=== PATIENT | male | born 1995 | race African-American/Black ===

== ENCOUNTER 2017-01-07 20:08 | Emergency (ER) | payer SELFPAY ==
--- NOTE | 2017-01-07 21:07 | ER Document Report ---
ED General - General Chief Complaint: Chest Pain Stated Complaint: CHEST PAIN Time Seen by Provider: 01/07/17 20:57 Notes: Patient is a 21-year-old male comes emergency department for chief complaint of chest pain, he states he has had this for several days, he feels it worse in the morning when he wakes up, it is just below his sternum, he states he has also had a worse cough for several days with yellow sputum production. He denies fever, difficulty breathing, abdominal pain. he denies any history of IV drug abuse or recreational drugs. He smokes cigarettes. Past medical history of asthma. TRAVEL OUTSIDE OF THE [place] IN LAST 30 DAYS: No - Related Data Allergies/Adverse Reactions: tramadol Allergy (Verified 02/07/16 07:34) hydrocodone bitartrate [From Vicodin] Adverse Reaction (Verified 02/07/16 07:34) Past Medical History - General Information source: Patient - Social History Smoking Status: Current Every Day Smoker Chew tobacco use (# tins/day): No Smoking Education Provided: Yes - <3 min Frequency of alcohol use: None Drug Abuse: None Lives with: Alone Family History: DM, Hypertension, Malignancy Patient has suicidal ideation: No Patient has homicidal ideation: No Pulmonary Medical History: Reports: Hx Asthma Renal/ Medical History: Denies: Hx Peritoneal Dialysis Musculoskeltal Medical History: Reports Hx Arthritis, Reports Hx Musculoskeletal Trauma Psychiatric Medical History: Reports: Hx Attention Deficit Hyperactivity Disorder - Immunizations Immunizations up to date: Yes Hx Diphtheria, Pertussis, Tetanus Vaccination: Yes Review of Systems - Review of Systems Constitutional: No symptoms reported EENT: No symptoms reported Cardiovascular: No symptoms reported Respiratory: See HPI Gastrointestinal: See HPI Genitourinary: No symptoms reported Male Genitourinary: No symptoms reported Musculoskeletal: See HPI Skin: No symptoms reported Hematologic/Lymphatic: No symptoms reported Neurological/Psychological: No symptoms reported Physical Exam - Vital signs Vitals: Temp Pulse Resp BP Pulse Ox 99.1 F 66 16 114/59 L 100 01/07/17 20:39 01/07/17 20:39 01/07/17 20:39 01/07/17 20:39 01/07/17 20:39 Interpretation: Normal - General General appearance: Appears well, Alert In distress: None - HEENT Head: Normocephalic, Atraumatic Eyes: Normal Pupils: PERRL - Respiratory Respiratory status: No respiratory distress. No: Labored, Retractions, Tachypnea Chest status: Tender - Very mild tenderness in the mid to lower sternum area and over the right lower anterior ribs Breath sounds: Normal. No: Decreased air movement, Wheezing Chest palpation: Normal - Cardiovascular Rhythm: Regular. No: Tachycardia Heart sounds: Normal auscultation, S1 appreciated, S2 appreciated Murmur: No - Abdominal Inspection: Normal Distension: No distension Bowel sounds: Normal Tenderness: Tender - Minimal generalized upper abdominal tenderness around the epigastrium Organomegaly: No organomegaly - Back Back: Normal, Nontender. No: Tender, CVA tenderness - Extremities General upper extremity: Normal inspection, Nontender, Normal ROM, Normal strength General lower extremity: Normal inspection, Nontender, Normal ROM, Normal strength - Neurological Neuro grossly intact: Yes Cognition: Normal Orientation: AAOx4 [place] Coma Scale Eye Opening: Spontaneous [place] Coma Scale Verbal: Oriented [place] Coma Scale Motor: Obeys Commands [place] Coma Scale Total: 15 Speech: Normal Motor strength normal: LUE, RUE, LLE, RLE Sensory: Normal - Psychological Associated symptoms: Normal affect, Normal mood - Skin Skin Temperature: Warm Skin Moisture: Dry Skin Color: Normal Course - Re-evaluation Re-evalutation: EKG sinus rhythm, no T-wave inversions or ST segment changes in consecutive leads, no concerning abnormalities including no [place] interval depression. Chest x -ray unremarkable. Patient very well-appearing on exam, has mild mainly right- sided chest wall tenderness, he also has a little bit of tenderness with palpation of the epigastric area which is extremely mild. No evidence of acute abdomen, no vomiting, unremarkable vital signs. Patient also with a occasional productive cough over the past few days. No fever. Discussed smoking cessation , will treat with prednisone, given Pepcid because of potential GI component as well, discussed follow-up and return precautions, patient states understanding and agreement. - Vital Signs Vital signs: Temp Pulse Resp BP Pulse Ox 98 F 60 18 120/69 96 01/07/17 22:48 01/07/17 22:48 01/07/17 22:48 01/07/17 22:48 01/07/17 22:48 Discharge - Discharge Clinical Impression: Chest wall pain, Cough Condition: Stable Disposition: HOME, SELF-CARE Additional Instructions: Your chest x-ray is normal with no concerning abnormalities including no evidence of pneumonia. Your EKG does not show any concerning abnormalities. Your examination indicates probably a chest wall cause of your symptoms although I recommend taking the Pepcid as prescribed for gastrointestinal source as well. Follow-up with primary care. Stop smoking. Return to emergency department for any concerning or worsening symptoms including difficulty breathing, fever, vomiting, or any other concerning symptoms. Prescriptions: Famotidine [Pepcid 20 mg Tablet] 20 mg PO BID #14 tablet Prednisone [Deltasone 10 mg Tablet] 10 mg PO ASDIR PRN #21 tablet PRN Reason: Forms: Smoking Cessation Education
[2017-01-07] MEDS ORDERED: FAMOTIDINE 20 MG TABLET PO ONE (21:13)
[2017-01-07] MEDS ORDERED: MAG HYDROX/AL HYDROX/SIMETH SUSP 30 ML UDCUP PO ONE (21:14)
--- NOTE | 2017-01-07 21:36 | RADIOLOGY REPORT (SQ) ---
EXAM DESCRIPTION: CHEST PA/LAT COMPLETED DATE/TIME: 01/07/2017 9:26 pm REASON FOR STUDY: chest pain COMPARISON: 01/05/2016 EXAM PARAMETERS: NUMBER OF VIEWS: two views TECHNIQUE: Digital Frontal and Lateral radiographic views of the chest acquired. RADIATION DOSE: NA LIMITATIONS: none FINDINGS: LUNGS AND PLEURA: No opacities, masses or pneumothorax. No pleural effusion. MEDIASTINUM AND HILAR STRUCTURES: No masses or contour abnormalities. HEART AND VASCULAR STRUCTURES: Heart normal size. No evidence for failure. BONES: No acute findings. HARDWARE: None in the chest. OTHER: No other significant finding. IMPRESSION: NO SIGNIFICANT RADIOGRAPHIC FINDING IN THE CHEST. TECHNICAL DOCUMENTATION: JOB ID: [id number] [employer]- All Rights Reserved
[2017-01-07] MEDS ORDERED: PREDNISONE 20 MG TABLET PO ONE (22:05)
[2017-01-07 22:52] VITALS: BP 120/69
--- NOTE | 2017-01-08 10:32 | EKG REPORT ---
SEVERITY:- ABNORMAL ECG - SINUS RHYTHM INCOMPLETE RIGHT BUNDLE BRANCH BLOCK : Confirmed by: Eva Nguyễn MD 08-Jan-2017 10:31:38
== END 2017-01-07 22:52 | disposition home or self-care (01) ==
LOC: ER 20:08
DX: R07.89 Other chest pain (principal); R05 Cough; R10.816 Epigastric abdominal tenderness; J45.909 Unspecified asthma, uncomplicated; F17.210 Nicotine dependence, cigarettes, uncomplicated; Z71.6 Tobacco abuse counseling; Z88.5 Allergy status to narcotic agent
CPT/HCPCS: 93005; 99285; 71020; 93010; J7512

== ENCOUNTER 2017-05-09 15:17 | Emergency (ER) | payer SELFPAY ==
[2017-05-09] MEDS ORDERED: ACETAMINOPHEN 325 MG TABLET PO ONE (17:38)
[2017-05-09] MEDS ORDERED: GUAIFENESIN/D-METHORPHAN (200-20 MG) SYRUP 10 ML PO ONE (17:38)
--- NOTE | 2017-05-09 17:38 | ER Document Report ---
ED Medical Screen (RME) - General Chief Complaint: Breathing Difficulty Stated Complaint: CONGESTION, DIFFICULTY BREATHING Time Seen by Provider: 05/09/17 17:37 Mode of Arrival: Ambulatory Information source: Patient Notes: Pt has had 3.5 weeks of cough, congestion, sob and today had some pink sputum with his cough. Admits to fever/chills. hasn't taken temp. not asthmatic. TRAVEL OUTSIDE OF THE [place] IN LAST 30 DAYS: No - Related Data Allergies/Adverse Reactions: tramadol Allergy (Verified 05/09/17 15:18) hydrocodone bitartrate [From Vicodin] Adverse Reaction (Verified 05/09/17 15:18) Past Medical History - General Information source: Patient Pulmonary Medical History: Reports: Hx Asthma Renal/ Medical History: Denies: Hx Peritoneal Dialysis Musculoskeltal Medical History: Reports Hx Arthritis, Reports Hx Musculoskeletal Trauma Psychiatric Medical History: Reports: Hx Attention Deficit Hyperactivity Disorder - Immunizations Immunizations up to date: Yes Hx Diphtheria, Pertussis, Tetanus Vaccination: Yes Review of Systems - Review of Systems Constitutional: See HPI EENT: See HPI Respiratory: See HPI Physical Exam - Vital signs Vitals: Temp Pulse Resp BP Pulse Ox 100.3 F 102 H 16 119/70 100 05/09/17 15:23 05/09/17 15:23 05/09/17 15:23 05/09/17 15:23 05/09/17 15:23 - Notes Notes: general: smiling, in NAD lungs: ctab Course - Vital Signs Vital signs: Temp Pulse Resp BP Pulse Ox 100.3 F 102 H 16 119/70 100 05/09/17 15:23 05/09/17 15:23 05/09/17 15:23 05/09/17 15:23 05/09/17 15:23
--- NOTE | 2017-05-09 18:11 | RADIOLOGY REPORT (SQ) ---
EXAM DESCRIPTION: CHEST PA/LAT COMPLETED DATE/TIME: 05/09/2017 6:04 pm REASON FOR STUDY: cough, sob COMPARISON: 01/07/2017 EXAM PARAMETERS: NUMBER OF VIEWS: two views TECHNIQUE: Digital Frontal and Lateral radiographic views of the chest acquired. RADIATION DOSE: NA LIMITATIONS: none FINDINGS: LUNGS AND PLEURA: No opacities, masses or pneumothorax. No pleural effusion. MEDIASTINUM AND HILAR STRUCTURES: No masses or contour abnormalities. HEART AND VASCULAR STRUCTURES: Heart normal size. No evidence for failure. BONES: No acute findings. HARDWARE: None in the chest. OTHER: No other significant finding. IMPRESSION: NO SIGNIFICANT RADIOGRAPHIC FINDING IN THE CHEST. TECHNICAL DOCUMENTATION: JOB ID: [id number] [employer]- All Rights Reserved
--- NOTE | 2017-05-09 18:12 | ER Document Report ---
ED General - General Chief Complaint: Breathing Difficulty Stated Complaint: CONGESTION, DIFFICULTY BREATHING Time Seen by Provider: 05/09/17 17:37 Mode of Arrival: Ambulatory Information source: Patient Notes: Patient is a 21 year old male who presents with 3 week history of cough, chest congestion which he states has worsened over the past week. He reports today he noticed pink tinge to his otherwise clear sputum and was concerned it was blood. He has been using a friends inhaler which does seem to provide relief. He was told he had asthma as a kid but he has never been on medication for it or required hospitalization. Endorses associated chills but denies headache, fever, chest pain, difficulty breathing, n/v/d. Did not get flu shot this year. He is a smoker. He had low grade temp in triage, given tylenol and anti-tussive. TRAVEL OUTSIDE OF THE [place] IN LAST 30 DAYS: No - Related Data Allergies/Adverse Reactions: tramadol Allergy (Verified 05/09/17 15:18) hydrocodone bitartrate [From Vicodin] Adverse Reaction (Verified 05/09/17 15:18) Past Medical History - General Information source: Patient - Social History Smoking Status: Current Every Day Smoker Family History: DM, Hypertension, Malignancy Pulmonary Medical History: Reports: Hx Asthma Renal/ Medical History: Denies: Hx Peritoneal Dialysis Musculoskeltal Medical History: Reports Hx Arthritis, Reports Hx Musculoskeletal Trauma Psychiatric Medical History: Reports: Hx Attention Deficit Hyperactivity Disorder - Immunizations Immunizations up to date: Yes Hx Diphtheria, Pertussis, Tetanus Vaccination: Yes Review of Systems - Review of Systems Constitutional: See HPI EENT: See HPI Cardiovascular: No symptoms reported Respiratory: See HPI Gastrointestinal: No symptoms reported Genitourinary: No symptoms reported Male Genitourinary: No symptoms reported Musculoskeletal: No symptoms reported Skin: No symptoms reported Hematologic/Lymphatic: No symptoms reported Neurological/Psychological: No symptoms reported Physical Exam - Vital signs Vitals: Temp Pulse Resp BP Pulse Ox 100.3 F 102 H 16 119/70 100 05/09/17 15:23 05/09/17 15:23 05/09/17 15:23 05/09/17 15:23 05/09/17 15:23 - Notes Notes: PHYSICAL EXAM: CONSTITUTIONAL: Alert and oriented, well-appearing and in no acute distress. Ambulatory and eating without difficulty, speaking full sentences without difficulty. Low-grade temp in triage, given Tylenol. HENT: Normocephalic, atraumatic. Ear canals without erythema or foreign body, TMs pearly godoy with good bony landmarks. Nares clear without erythema, septal hematoma or deviation, airway patent. Oropharynx clear without erythema, tonsilar exudate or malocclusion. Trachea midline. Uvula midline. Moist mucous membranes. EYES: Pupils equal round and reactive to light, EOM intact. Sclera anicteric, conjunctiva are normal. No entrapment. NECK: supple without lymphadenopathy. No midline tenderness or paraspinous muscle spasms. No step-offs or deformities. ROM intact. HEART: Regular rate and rhythm without murmurs. LUNGS: CTAB and equal. No wheezes, rales or rhonchi. EXTREMITIES: no bony tenderness, erythema, edema, ecchymosis or deformity. Normal range of motion, no pitting edema. No cyanosis. Cap Refill <3 seconds. NEURO: Cranial nerves grossly intact. Normal sensory/motor exams. PSYCH: Normal mood, normal affect. SKIN: Warm and dry. Normal turgor. No rashes or lesions noted. Course - Re-evaluation Re-evalutation: 05/09/17 18:11 Patient seen and examined. Low grade temp in triage, given tylenol and anti- tussive. Otherwise VSS, no respiratory distress, speaking in full sentences without difficulty, ambulatory in ED without difficulty. Lungs CTAB. Obtained CXR which was negative for acute infiltrate/opacity. Discussed results with patient, will treat for bronchitis. Smoking cessation discussed. Low suspicion for pneumonia, PE, ACS or other emergent medical condition. Patient in agreement with plan. At this time, will discharge with return precautions and follow-up recommendations. Verbal discharge instructions given at the bedside and opportunity for questions given. Medication warnings reviewed. Patient is in agreement with this plan and has verbalized understanding of return precautions and the need for primary care follow-up in the next 24-72 hours. - Vital Signs Vital signs: Temp Pulse Resp BP Pulse Ox 100.3 F 102 H 16 119/70 100 05/09/17 15:23 05/09/17 15:23 05/09/17 15:23 05/09/17 15:23 05/09/17 15:23 - Diagnostic Test Radiology reviewed: Image reviewed, Reports reviewed Discharge - Discharge Clinical Impression: Bronchitis, Smoker, Fever and chills Condition: Stable Disposition: HOME, SELF-CARE Additional Instructions: Your chest xray today was negative for pneumonia or other findings. BRONCHITIS: You have acute bronchitis. This disease is an infection or inflammation of the air passageways in your lungs. Symptoms usually include cough, low grade fever, shortness of breath, and wheezing. The cough usually persists for a couple of weeks. Most cases of bronchitis get better without antibiotics. We prescribe antibiotics when we believe bacteria are damaging your airways, or if there's high risk the bronchitis will worsen into pneumonia. Increase your fluid intake. A cool mist humidifier may make your lungs more comfortable. An expectorant (cough medicine that loosens phlegm) can help. If you smoke, STOP!!! Recovery from bronchitis can be somewhat slow, but you should see improvement within a day or two. Repeated episodes of bronchitis may result in lung damage -- for example, chronic bronchitis, recurrent pneumonias, or emphysema. Call the doctor if you develop increasing fever, shortness of breath, chest pain, bloody sputum, or otherwise worsen. If you have not improved at all after several days, contact the physician. BRONCHITIS WITH BRONCHOSPASM (WHEEZING): You have bronchitis with bronchospasm (wheezing). Sometimes people develop wheezing with a chest cold. This occurs either because of an underlying tendency toward asthma or because the virus itself irritates the bronchial tubes. This irritation causes cough, shortness of breath, and wheezing. Emergency treatment of bronchospasm may include adrenaline shots or bronchodilator aerosol. You may feel lightheaded and have a rapid pulse for an hour or two. Rest and get plenty of fluids. At home, we'll treat you with a bronchodilator inhaler. Corticosteroids may be required for some patients. Until you recover, avoid chemical fumes, dusts, pollens, and exercising in very cold or dry air. If you smoke, stop now! Most cases of bronchitis get better without antibiotics. We prescribe antibiotics when we believe bacteria are damaging your airways, or if there's high risk the bronchitis will worsen into pneumonia. Increase your fluid intake. A cool mist humidifier may make your lungs more comfortable. An expectorant (cough medicine that loosens phlegm) can help. Repeated episodes of bronchitis and bronchospasm may result in lung damage -- for example, chronic bronchitis, recurrent pneumonias, or emphysema. If you develop a fever, increased wheezing, chest pain, or severe shortness of breath, you should contact the doctor immediately. DECONGESTANT MEDICATION: A decongestant medicine has been prescribed. Often this medicine is combined in the same tablet with an antihistamine or expectorant. This type of medicine is helpful in treating a bad cold or sinus condition, as well as in treatment of the nasal congestion of hay fever. It is not of much benefit for lung infections. Decongestant medicines are related to stimulants. They can cause an increase in blood pressure and heart rate. Persons with heart disease and high blood pressure should not take decongestants without discussing this with the physician. If you develop palpitations, chest pain, headache, or tremors, stop the medicine and consult your physician. COUGH-SUPPRESSANT & EXPECTORANT MEDICATION: You are to use a cough medication as needed for relief of symptoms. This medicine is a combination of an expectorant (to make the mucous thinner and more easily "coughed up") and a cough suppressant (to reduce the frequency of coughing). The cough-suppressant medicine is related to narcotics. You may experience mild nausea and sleepiness. Some patients who are very sensitive to narcotics may have stomach pain from this medicine. Taking the medicine with food reduces these side effects. Do not drive or work with machinery until you know how this medicine affects you. The expectorant should have no side effects. Iodine-containing expectorants (such as organidin) should not be taken by persons with active thyroid disease unless approved by your doctor. Call the doctor if you develop shortness of breath, hives, rash, itching, lightheadedness, or severe nausea and vomiting. INHALED BRONCHODILATORS: You have received a treatment of and/or prescription for an inhaled bronchodilator -- a medication which stimulates the airways in the lung to dilate. This improves the flow of air in asthma, bronchitis, and emphysema. These medicines have some similarity to adrenaline, and can cause similar side effects: shakiness, racing heart, and a sense of nervousness. These side effects decrease with time. Contact your doctor if these side effects are severe. Do not over-use the medicine. Too-frequent use of the inhaler may make it ineffective. Call your doctor if the inhaler is not controlling your symptoms at the prescribed doses. STEROID MEDICATION: You have been given an injection of or oral medicine of the cortisone/ steroid class. This medication is used to control inflammation or allergy. Evan t is usually only given for a short period of time, until the acute process subsides. There are usually no side effects from short-term use of cortisone-like medications. Some persons feel an increased sense of well-being and are not sleepy at bedtime. Long-term use of cortisone medications is best avoided, unless required for a severe condition. If your condition does not remit, or relapses after the course of corticosteroid medication, you should consult your physician. ANTIBIOTIC THERAPY: You have been given an antibiotic prescription. It's important that you take all the medication, unless instructed otherwise by your physician. Failure to complete the entire course can result in relapse of your condition. Common side effects of antibiotics include nausea, intestinal cramping, or diarrhea. Women may develop vaginal yeast infections, and babies can get yeast (thrush) in the mouth following the use of antibiotics. Contact your physician if you develop significant side effects from this medication. Allergy to this antibiotic can result in hives, wheezing, faintness, or itching. If symptoms of allergy occur, stop the medication and call your doctor. AZITHROMYCIN: Azithromycin (Zithromax) is a broad spectrum antibiotic in the same class as erythromycin. It can treat a variety of bacterial infections, but is most frequently used for respiratory infections. Azithromycin is extremely long-lasting. It accumulates in body tissues and continues to kill bacteria for many days. In order to improve absorption, Azithromycin should be taken at least one hour before or two hours after a meal. It does not have the same strong tendency to upset the stomach as erythromycin and is usually very well tolerated. Patients who have had a rash or other true allergic reactions to erythromycin should not take this medication. Call if you develop gastrointestinal distress, severe diarrhea, rash, hives, itching, or shortness of breath. USE OF ACETAMINOPHEN (Tylenol): Acetaminophen may be taken for pain relief or fever control. It's much safer than aspirin, offering a wider range of "safe" dosages. It is safe during . Some brand names are Tylenol, Panadol, Datril, Anacin 3, Tempra, and Liquiprin. Acetaminophen can be repeated every four hours. The following are maximum recommended dosages: >89 pounds or adults 650 mg to 900 mg Acetaminophen can be repeated every four hours. Maximum dose not to exceed 4000 mg a day. SMOKING: If you smoke, you should stop smoking. The tar and chemicals in cigarette smoke are harmful. Smoking has been shown to cause: emphysema chronic bronchitis lung cancer mouth and throat cancer stomach and pancreas cancer premature aging defects In addition, smoking increases ear and lung infections in children of smokers. FOLLOW-UP CARE: If you have been referred to a physician for follow-up care, call the physician s office for an appointment as you were instructed or within the next two days. If you experience worsening or a significant change in your symptoms, notify the physician immediately or return to the Emergency Department at any time for re-evaluation. Prescriptions: Pseudoephedrine HCl [Sudafed] 30 mg PO Q6HP PRN #8 tablet PRN Reason: Benzonatate [Tessalon Perle 100 mg Capsule] 100 mg PO Q8HP PRN #20 cap PRN Reason: Albuterol Sulfate [Proair HFA Inhalation Aerosol 8.5 gm MDI] 2 puff IH Q4H PRN # 1 mdi PRN Reason: Azithromycin [Zithromax 250 mg Tablet] 250 mg PO ASDIR #6 tablet Prednisone [Deltasone 20 mg Tablet] 3 tab PO DAILY 5 Days tablet
[2017-05-09 19:06] VITALS: BP 135/71
== END 2017-05-09 19:07 | disposition home or self-care (01) ==
LOC: ER 15:17
DX: J40 Bronchitis, not specified as acute or chronic (principal); R50.9 Fever, unspecified; R06.02 Shortness of breath; R05 Cough; R09.89 Other specified symptoms and signs involving the circulatory and respiratory systems; F17.200 Nicotine dependence, unspecified, uncomplicated
CPT/HCPCS: 99283; 71046; J3490

== ENCOUNTER 2017-06-06 17:55 | Emergency (ER) | payer SELFPAY ==
--- NOTE | 2017-06-06 20:02 | ER Document Report ---
ED ENT - General Chief Complaint: Sore Throat Stated Complaint: SORE THROAT Time Seen by Provider: 06/06/17 19:45 Mode of Arrival: Ambulatory Information source: Patient TRAVEL OUTSIDE OF THE [place] IN LAST 30 DAYS: No - HPI Patient complains to provider of: Throat problem Notes: Patient is here with complaints of sore throat. States that his throat is been sore for the last several weeks. Is much worse if he tries to swallow. Occasionally he feels like things get stuck when he swallows although he is able to eat and drink without significant difficulty. He is eating ice and drinking water at this time without difficulty. He denies any fevers. He denies any nausea, vomiting, diarrhea at this time. He states that he recently was diagnosed with bronchitis but feels like that has improved. He denies any chronic medical conditions. He denies any rash. He denies any difficulty breathing. He denies any chest pain. He denies any headache, blurred vision, numbness, tingling, weakness. No other complaints at this time. - Related Data Allergies/Adverse Reactions: tramadol Allergy (Verified 06/06/17 17:58) hydrocodone bitartrate [From Vicodin] Adverse Reaction (Verified 06/06/17 17:58) Past Medical History - Social History Smoking Status: Unknown if Ever Smoked Family History: DM, Hypertension, Malignancy Pulmonary Medical History: Reports: Hx Asthma Renal/ Medical History: Denies: Hx Peritoneal Dialysis Musculoskeltal Medical History: Reports Hx Arthritis, Reports Hx Musculoskeletal Trauma Psychiatric Medical History: Reports: Hx Attention Deficit Hyperactivity Disorder - Immunizations Immunizations up to date: Yes Hx Diphtheria, Pertussis, Tetanus Vaccination: Yes Review of Systems - Review of Systems -: Yes All other systems reviewed and negative Physical Exam - Vital signs Vitals: Temp Pulse Resp BP Pulse Ox 98.5 F 86 16 124/79 99 06/06/17 18:14 06/06/17 18:14 06/06/17 18:14 06/06/17 18:14 06/06/17 18:14 - Notes Notes: GENERAL: alert, cooperative, nontoxic, no distress. HEAD: normocephalic, atraumatic EYES: conjunctiva pink without discharge, no external redness or swelling. EARS: no external swelling, no external redness, no mastoid redness, swelling, tenderness. Ear canals are clear without swelling or drainage. TMs pearly workman , no redness, no bulging, normal landmarks, no perforation. NOSE: atraumatic, no external swelling. clear rhinorrhea noted. MOUTH/THROAT: mucous membranes moist and pink, posterior pharynx without erythema, swelling, exudate. No trismus or drooling. No sign of peritonsillar abscess. Uvula is midline. No stridor. NECK: soft, supple, full range of motion, no meningismus. Mild bilateral anterior cervical lymphadenopathy. CHEST: no distress, lungs clear and equal throughout. No wheezing, rales, rhonchi. CARDIAC: regular rate and rhythm, no murmur, normal capillary refill, normal pulses. No peripheral edema noted. BACK: full range of motion, no CVA tenderness. EXTREMITIES: full range of motion of all extremities. No redness, no swelling. NEURO: alert and oriented A&O3, no focal deficits, full range of motion of all extremities. PYSCH: appropriate mood, affect. Patient is cooperative. SKIN: pink, warm, dry, no rash. Course - Re-evaluation Re-evalutation: 06/06/17 21:29 Patient is nontoxic appearing with stable vitals. Here with complaints of sore throat for the last few weeks. On exam he has a benign exam with no significant erythema no signs of peritonsillar abscess he is in no distress. He is eating ice and drinking water without any difficulty. There is no stridor. Lungs are clear. Rapid strep and mono screen were both negative. Soft tissue x-ray of the neck shows no acute abnormalities. At this point patient can be discharged home with a prescription for Naprosyn. I will refer him to ENT if he continues to have the sore throat as they may need to further evaluate him with direct visualization. He is instructed to follow-up sooner if he develops worsening pain, high fever, persistent vomiting, or for any further concerns. The patient is noted to have elevated blood pressure during today's emergency department visit. The patient was informed of this finding. The patient was instructed that this may be related to pre-hypertension and requires further evaluation with a primary care provider. The patient has no hypertensive symptoms at this time. The patient's emergency department workup and current diagnosis were explained to the patient and or family. Follow-up instructions were provided. Medications if prescribed were discussed. Instructions for when to return to the emergency department including specific worrisome symptoms were discussed with the patient and/or family. - Vital Signs Vital signs: Temp Pulse Resp BP Pulse Ox 98.5 F 86 16 124/79 99 06/06/17 18:14 06/06/17 18:14 06/06/17 18:14 06/06/17 18:14 06/06/17 18:14 - Diagnostic Test Radiology reviewed: Image reviewed, Reports reviewed - Negative soft tissue neck Discharge - Discharge Clinical Impression: Sore throat Condition: Stable Disposition: HOME, SELF-CARE Instructions: Sore Throat ([facility]) Additional Instructions: Take medication as prescribed. He may also take Tylenol as needed for pain. Follow-up with ENT at the next available appointment. Follow-up sooner for worsening symptoms, difficulty breathing, high fever, persistent vomiting, or for any further concerns. Your blood pressure was elevated during today's visit. Have this rechecked with your doctor. Prescriptions: Naproxen [Naprosyn] 500 mg PO BID #20 tablet Forms: Elevated Blood Pressure, Smoking Cessation Education Referrals: CHEN KUMAR MD [ACTIVE STAFF] - Follow up as needed MELINDA HOLLIDAY MD [SATELLITE COMMUNICATIONS ENGINEER] - Follow up as needed OCTAVIANO CHARLTON MD [SATELLITE COMMUNICATIONS ENGINEER] - Follow up as needed ANGELIC RODRIGUEZ DO [SATELLITE COMMUNICATIONS ENGINEER] - Follow up as needed EILEEN DAMON MD [SATELLITE COMMUNICATIONS ENGINEER] - Follow up as needed BILL ALBARADO MD [SATELLITE COMMUNICATIONS ENGINEER] - Follow up as needed
[2017-06-06] MEDS ORDERED: KETOROLAC TROMETHAMINE INJ/PF 30 MG/1 ML SDV IM ONE (20:14)
--- NOTE | 2017-06-06 20:50 | RADIOLOGY REPORT (SQ) ---
EXAM DESCRIPTION: SOFT TISSUE NECK COMPLETED DATE/TIME: 06/06/2017 8:28 pm REASON FOR STUDY: SORE THROAT COMPARISON: None. NUMBER OF VIEWS: Two views. TECHNIQUE: AP and lateral radiographic image of the soft tissues of the neck. LIMITATIONS: None. FINDINGS: EPIGLOTTIS: Normal. Contour normal. Aryepiglottic folds normal. PREVERTEBRAL SOFT TISSUES: Normal. No soft tissue swelling. SUBGLOTTIC AREA: Normal. No narrowing. RETROPHARYNGEAL SPACE: Normal. No soft tissue masses. BONES: No significant findings. LUNG APICES: Normal. OTHER: No radiopaque foreign body. No other significant finding. IMPRESSION: NEGATIVE STUDY OF THE SOFT TISSUES OF THE NECK. TECHNICAL DOCUMENTATION: JOB ID: [id number] [employer]- All Rights Reserved Reading location - IP/workstation name: [email or web address]
[2017-06-06 21:54] VITALS: BP 118/77
== END 2017-06-06 21:52 | disposition home or self-care (01) ==
LOC: ER 17:55
DX: J02.9 Acute pharyngitis, unspecified (principal)
CPT/HCPCS: 99283; 36415; 87070; 87880; 86308; 70360; J1885

== ENCOUNTER 2017-07-17 00:49 | Emergency (ER) | payer OTHER ==
[2017-07-17 01:43] VITALS: BP 118/62
[2017-07-17] MEDS ORDERED: DIPH/PERTUSS(ACELL)/TETANUS VAC/PF 0.5 ML SYR (>=10YO) IM ONE (02:15)
[2017-07-17] MEDS ORDERED: KETOROLAC TROMETHAMINE 60 MG/2 ML SDV IM ONE (02:15)
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
== END 2017-07-17 04:29 | disposition home or self-care (01) ==
LOC: ER 00:49
DX: S20.212A Contusion of left front wall of thorax, initial encounter (principal); S70.211A Abrasion, right hip, initial encounter; R07.89 Other chest pain; V03.90XA Pedestrian on foot injured in collision with car, pick-up truck or van, unspecified whether traffic or nontraffic accident, initial encounter
CPT/HCPCS: 99283; 96372; 90471; 71101; 90715; J1885

== ENCOUNTER 2017-10-27 20:04 | Emergency (ER) | payer SELFPAY ==
--- NOTE | 2017-10-27 22:31 | RADIOLOGY REPORT (SQ) ---
EXAM DESCRIPTION: CHEST 2 VIEWS COMPLETED DATE/TIME: 10/27/2017 10:20 pm REASON FOR STUDY: difficulty breathing COMPARISON: 05/09/2017 EXAM PARAMETERS: NUMBER OF VIEWS: two views TECHNIQUE: Digital Frontal and Lateral radiographic views of the chest acquired. RADIATION DOSE: NA LIMITATIONS: none FINDINGS: LUNGS AND PLEURA: No opacities, masses or pneumothorax. No pleural effusion. MEDIASTINUM AND HILAR STRUCTURES: No masses or contour abnormalities. HEART AND VASCULAR STRUCTURES: Heart normal size. No evidence for failure. BONES: No acute findings. HARDWARE: None in the chest. OTHER: No other significant finding. IMPRESSION: NO ACUTE RADIOGRAPHIC FINDING IN THE CHEST. TECHNICAL DOCUMENTATION: JOB ID: [id number] [email or web address]- All Rights Reserved Reading location - IP/workstation name: [email or web address]
[2017-10-28] MEDS ORDERED: GUAIFENESIN 600 MG TABLET.SA PO ONE (00:13)
[2017-10-28] MEDS ORDERED: AZITHROMYCIN 250 MG TABLET PO ONE (00:13)
[2017-10-28] MEDS ORDERED: IBUPROFEN 800 MG TABLET PO ONE (00:14)
--- NOTE | 2017-10-28 00:18 | ER Document Report ---
ED General - General Chief Complaint: Breathing Difficulty Stated Complaint: RIB PAIN/LIGHT HEADED Time Seen by Provider: 10/28/17 00:02 Mode of Arrival: Ambulatory Information source: Patient TRAVEL OUTSIDE OF THE [place] IN LAST 30 DAYS: No - HPI Notes: Patient is an otherwise healthy 22-year-old and right pleuritic chest discomfort and fever which started earlier today. Patient arrives with temperature of 100.5. The patient reports no abdominal pain or nausea or vomiting or constipation or diarrhea. He reports mild right earache. He reports mild pharyngitis. No skin rash. - Related Data Allergies/Adverse Reactions: tramadol Allergy (Verified 10/27/17 20:06) hydrocodone bitartrate [From Vicodin] Adverse Reaction (Verified 10/27/17 20:06) Past Medical History - General Information source: Patient - Social History Smoking Status: Current Every Day Smoker Frequency of alcohol use: None Drug Abuse: None Lives with: Family Family History: Reviewed & Not Pertinent, DM, Hypertension, Malignancy Pulmonary Medical History: Reports: Hx Asthma Renal/ Medical History: Denies: Hx Peritoneal Dialysis Musculoskeletal Medical History: Reports Hx Arthritis, Reports Hx Musculoskeletal Trauma Psychiatric Medical History: Reports: Hx Attention Deficit Hyperactivity Disorder - Immunizations Immunizations up to date: Yes Hx Diphtheria, Pertussis, Tetanus Vaccination: Yes Review of Systems - Review of Systems Notes: REVIEW OF SYSTEMS: CONSTITUTIONAL : Reports fever. EENT: Denies eye symptoms. Denies tongue, or mouth swelling or difficulty swallowing. CARDIOVASCULAR: Denies palpitations or racing or irregular heart beat. Denies ankle edema. RESPIRATORY: Denies shortness of breath, difficulty breathing, or wheezing. GASTROINTESTINAL: Denies abdominal pain or distention. Denies nausea, vomiting , or diarrhea. Denies blood in vomitus, stools, or per rectum. Denies black, tarry stools. Denies constipation. GENITOURINARY: Denies difficulty urinating, painful urination, burning, frequency, blood in urine, or discharge. MUSCULOSKELETAL: Denies back or neck pain or stiffness. Denies joint pain or swelling. SKIN: Denies rash, lesions or sores. HEMATOLOGIC : Denies easy bruising or bleeding. LYMPHATIC: Denies swollen, enlarged glands. NEUROLOGICAL: Denies confusion or altered mental status. Denies passing out or loss of consciousness. Denies dizziness or lightheadedness. Denies headache. Denies weakness or paralysis or loss of use of either side. Denies problems with gait or speech. Denies sensory loss, numbness, or tingling. Denies seizures. PSYCHIATRIC: Denies anxiety or stress. Denies depression, suicidal ideation, or homicidal ideation. ALL OTHER SYSTEMS REVIEWED AND NEGATIVE. Dictation was performed using [employer] voice recognition software Physical Exam - Vital signs Vitals: Temp Pulse Resp BP Pulse Ox 100.5 F H 101 H 17 114/63 99 10/27/17 20:14 10/27/17 20:14 10/27/17 20:14 10/27/17 20:14 10/27/17 20:14 - Notes Notes: PHYSICAL EXAMINATION: GENERAL: Well-appearing, well-nourished and in no acute distress. HEAD: Atraumatic, normocephalic. EYES: Pupils equal round and reactive to light, extraocular movements intact, sclera anicteric, conjunctiva are normal. ENT: oropharynx clear without exudates. Moist mucous membranes. Coryza noted. Left tympanic membrane clear right ear canal obscured by cerumen. NECK: Normal range of motion, supple without lymphadenopathy LUNGS: Breath sounds clear to auscultation bilaterally and equal. No wheezes rales or rhonchi. Reproducible chest pain left greater than right. HEART: Regular rate and rhythm without murmurs ABDOMEN: Soft, nontender, nondistended abdomen. No guarding, no rebound. No masses appreciated. Musculoskeletal: Normal range of motion, no pitting or edema. No cyanosis. NEUROLOGICAL: Cranial nerves grossly intact. Normal speech, normal gait. Normal sensory, motor exams PSYCH: Normal mood, normal affect. SKIN: Warm, Dry, normal turgor, no rashes or lesions noted. Course - Re-evaluation Re-evalutation: 10/28/17 00:17 Chest x-ray was negative for pneumonia or pneumothorax. Patient was given Zithromax, Mucinex, ibuprofen for fever. - Vital Signs Vital signs: Temp Pulse Resp BP Pulse Ox 100.5 F H 101 H 17 114/63 99 10/27/17 20:14 10/27/17 20:14 10/27/17 20:14 10/27/17 20:14 10/27/17 20:14 Discharge - Discharge Clinical Impression: Bronchitis Fever Qualifiers: Fever type: unspecified Qualified Code(s): R50.9 - Fever, unspecified Cerumen impaction Qualifiers: Laterality: right Qualified Code(s): H61.21 - Impacted cerumen, right ear Condition: Stable Disposition: HOME, SELF-CARE Instructions: Bronchitis ([facility]), Fever ([facility]), Cerumen Impaction ([facility]), Family Physicians / Practices Prescriptions: Ibuprofen 800 mg PO Q8HP PRN #30 tablet PRN Reason: Guaifenesin/Dextromethorphan [Mucinex Dm ER 600-30 mg Tablet] 1 each PO Q12HP PRN #20 tab.er.12h PRN Reason: Azithromycin [Zithromax 250 mg Tablet] 250 mg PO DAILY #4 tablet
[2017-10-28 01:13] VITALS: BP 112/70
== END 2017-10-28 00:25 | disposition home or self-care (01) ==
LOC: ER 20:04
DX: J40 Bronchitis, not specified as acute or chronic (principal); R50.9 Fever, unspecified; H61.21 Impacted cerumen, right ear; R06.00 Dyspnea, unspecified; R07.89 Other chest pain
CPT/HCPCS: 71046; 99283

== ENCOUNTER 2017-12-10 13:21 | Emergency (ER) | payer SELFPAY ==
--- NOTE | 2017-12-10 14:08 | ER Document Report ---
HPI - HPI Patient complains to provider of: cough Onset: Other - 3 months Pain Level: 0 Context: 22-year-old male complaining of cough for 3 months that is not getting any better, sore mouth, decreased appetite and a 35 pound weight loss, fatigue,. He was seen a month and a half ago in the emergency department and he was told he had bronchitis. He just is not feeling any better. 3 of asthma. He smokes marijuana. No IV drug use. Denies anal intercourse or risky sexual behavior. Associated Symptoms: None Exacerbated by: Denies Relieved by: Denies Similar symptoms previously: No Recently seen / treated by doctor: No - ROS ROS below otherwise negative: Yes Systems Reviewed and Negative: Yes All other systems reviewed and negative Past Medical History - General Information source: Patient - Social History Smoking Status: Never Smoker Drug Abuse: Marijuana Lives with: Family Family History: Reviewed & Not Pertinent, DM, Hypertension, Malignancy Pulmonary Medical History: Reports: Hx Asthma Renal/ Medical History: Denies: Hx Peritoneal Dialysis Musculoskeletal Medical History: Reports Hx Arthritis, Reports Hx Musculoskeletal Trauma Psychiatric Medical History: Reports: Hx Attention Deficit Hyperactivity Disorder Surgical Hx: Negative - Immunizations Immunizations up to date: Yes Hx Diphtheria, Pertussis, Tetanus Vaccination: Yes Vertical Provider Document - CONSTITUTIONAL Agree With Documented VS: Yes Exam Limitations: No Limitations - INFECTION CONTROL TRAVEL OUTSIDE OF THE [place] IN LAST 30 DAYS: No - HEENT HEENT: Normocephalic, Pharyngeal Erythema. negative: Conjuctival Injection Notes: Oral thrush noted - NECK Neck: Supple. negative: Lymphadenopathy-Left - RESPIRATORY Respiratory: Breath Sounds Normal, No Respiratory Distress - CARDIOVASCULAR Cardiovascular: Regular Rate, Regular Rhythm - GI/ABDOMEN Gastrointestinal: Abdomen Soft, Abdomen Non-Tender, No Organomegaly - NEURO Level of Consciousness: Awake - DERM Integumentary: No Rash Course - Re-evaluation Re-evalutation: 12/10/17 14:27 Patient denies IV drug use or anal intercourse. He does not believe that he was at risk for HIV. He agrees to having his HIV drawn for working up this weight loss thrush and cough 12/10/17 16:01 Dr. Keene called me and is concerned for pneumocystis pneumonia on the chest x-ray. The HIV that I ordered is still pending. 12/10/17 16:11 HIV reactive , lab will send confirmation. Dr. Frias recommends getting infectious disease consult I have called to [facility] for telephone consult with infectious disease. 12/10/17 16:50 12/10/17 17:01 The lab chemistry avionics supervisor was called and they do not report out the preliminary reactivity (59.4) to the HIV and HIV 2 antibody test, They are drawing more blood to send to [facility] for confirmatory test. I had a long conversation with the patient about the possible diagnoses and the need for taking Septra prednisone that tuberculosis may be in the differential so her getting a PPD. I will have him follow up Tuesday morning to read the PPD and recheck his respiratory status. He understands to return to the emergency room if he becomes more ill with shortness of breath fever cough. I will also treat his thrush with oral fluconazole which is recommended. I am still waiting for infectious disease at [facility] to call back so he can have follow-up. 12/10/17 18:14 Dr. Mosher the hospitalist feels that the patient needs to be transferred to a tertiary center where they have infectious disease, pulmonary which we do not have at [facility]. The pneumocystis stain is a send out she will order that the TB PCR is a blood test that I have ordered they will re-stick and for that the mask is been applied to the patient I called Dr. Sher at [place] as the infectious disease and he was the one that gave me the recommendations for further testing. He states the patient needs to have an inpatient workup. [facility] is on hospital diversion so I am now calling [facility]. 12/10/17 19:19 [address] [facility] hospitalist Dr. Garcia will accept the patient when I spoke with her at 18:48. She recommended AFB cultures every 8 hours 3. [facility] does not have any beds and it would be a 48 hour hold is on the list for that hospital. I have called [facility] and waiting for the hospitalist to call me back at 19:00 12/10/17 20:11 Care transferred to Wilmer ERICKSON at the bedside. The PPD in the right forearm has been circled with a pen, 2 AFB sputum cultures are pending, the pneumocystis culture has been sent as an outpatient order, TB PCR Gold blood test has been drawn, Septra DS 2 every 8 hours . Neither the hospitalist at [facility] nor the infectious disease at [facility] recommended any other antibiotics than the Septra, he is hungry and a meal tray has been ordered, fluconazole 200 mg has been ordered and will put that in for daily 7 TSH is normal at 1.02, LDH is elevated which the hospitalist at [facility] Dr. Garcia said points more towards this as being the HIV diagnosis, the chest x -ray films have been pushed to [facility] at [facility] at 1822. Patient is now on respiratory isolation room 5. 12/10/17 20:17 I called the transfer center back since it is been an hour and 17 minutes and hospitalist do have the information but they have a very busy service and the [facility] transfer center will call me when they are ready to talk to me. 12/10/17 20:21 - Vital Signs Vital signs: Temp Pulse Resp BP Pulse Ox 99.2 F 109 H 18 118/70 98 12/10/17 13:47 12/10/17 13:47 12/10/17 13:47 12/10/17 13:47 12/10/17 13:47 - Laboratory Result Diagrams: 12/10/17 14:48 12/10/17 14:48 Discharge - Discharge Clinical Impression: cavitory lung lesions at apices, Thrush, rule out TB, diffuse bilateral pneumonia, reactive screening HIV test Condition: Stable
[2017-12-10 15:09] LABS: ABSOLUTE EOSINOPHILS # (AUTO) 0.2 10^3/uL (0.0-0.6); ABSOLUTE MONOCYTES (AUTO) 0.5 10^3/uL (0.1-1.4); ABSOLUTE NEUT (AUTO) 4.7 10^3/uL (1.7-8.2); BASOPHILS % (AUTO) 0.6 % (0-2); EOSINOPHILS % (AUTO) 2.4 % (0-6); HEMATOCRIT 33.2 % (37.9-51.0); HEMOGLOBIN 11.1 g/dL (13.5-17.0); LYMPHOCYTES % (AUTO) 16.3 % (13-45); MEAN CORPUSCULAR HEMOGLOBIN 29.1 pg (27.0-33.4); MEAN CORPUSCULAR HGB CONC 33.4 g/dL (32.0-36.0); MEAN CORPUSCULAR VOLUME 87 fl (80-97); MONOCYTES % (AUTO) 7.4 % (3-13); PLATELET COUNT 303 10^3/uL (150-450); RED BLOOD COUNT 3.81 10^6/uL (4.35-5.55); SEGMENTED NEUTROPHILS % (AUTO) 73.3 % (42-78); TOTAL CELLS COUNTED % (AUTO) 100 %; WHITE BLOOD COUNT 6.4 10^3/uL (4.0-10.5)
[2017-12-10 15:32] LABS: ALANINE AMINOTRANSFERASE 22 U/L (21-72); ALBUMIN 3.8 g/dL (3.5-5.0); ALKALINE PHOSPHATASE 63 U/L (38-126); ANION GAP 6 (5-19); ASPARTATE AMINO TRANSFERASE 34 U/L (17-59); BILIRUBIN,DIRECT 0.3 mg/dL (0.0-0.4); BILIRUBIN,TOTAL 0.6 mg/dL (0.2-1.3); BLOOD UREA NITROGEN 17 mg/dL (7-20); CALCIUM 9.5 mg/dL (8.4-10.2); CARBON DIOXIDE 31 mmol/L (22-30); CHLORIDE 105 mmol/L (98-107); GLUCOSE 93 mg/dL (75-110); SODIUM 142.2 mmol/L (137-145); TOTAL PROTEIN 8.3 g/dL (6.3-8.2)
[2017-12-10 16:02] LABS: URINE AMPHETAMINES SCREEN NEGATIVE; URINE BARBITURATES SCREEN NEGATIVE; URINE BENZODIAZEPINES SCREEN NEGATIVE; URINE COCAINE SCREEN NEGATIVE; URINE MARIJUANA (THC) SCREEN UNCONFIRMED POSITIVE; URINE METHADONE SCREEN NEGATIVE; URINE PHENCYCLIDINE SCREEN NEGATIVE
--- NOTE | 2017-12-10 16:04 | RADIOLOGY REPORT (SQ) ---
EXAM DESCRIPTION: CHEST 2 VIEWS COMPLETED DATE/TIME: 12/10/2017 3:47 pm REASON FOR STUDY: Cough for 3 months COMPARISON: Chest films 10/27/2017, 05/09/2017, 11/07/2016 EXAM PARAMETERS: NUMBER OF VIEWS: two views TECHNIQUE: Digital Frontal and Lateral radiographic views of the chest acquired. RADIATION DOSE: NA LIMITATIONS: none FINDINGS: LUNGS AND PLEURA: Right apical and left apical cystic structures are present, new compared to previous studies. There is diffuse airspace disease bilaterally. Findings are worrisome for pne umocystis pneumonia in an immunocompromised patient. Findings discussed with Albertina Boo in the em ergency room. No pleural effusions. No pneumothorax. MEDIASTINUM AND HILAR STRUCTURES: No masses or contour abnormalities. HEART AND VASCULAR STRUCTURES: Heart normal size. No evidence for failure. BONES: No acute findings. HARDWARE: None in the chest. OTHER: No other significant finding. IMPRESSION: Diffuse bilateral airspace disease with cavitation at both apices. Differential is pneu mocystis pneumonia in the immunocompromised patient. Tuberculosis could not be excluded. TECHNICAL DOCUMENTATION: JOB ID: [id number] [employer]- All Rights Reserved Reading location - IP/workstation name: [email or web address]
[2017-12-10] MEDS ORDERED: SULFAMETHOXAZOLE/TRIMETHOPRIM 800-160 MG TABLET PO ONE (16:14)
[2017-12-10] MEDS ORDERED: TUBERCULIN,PURIF.PROT.DERIV. 5 TU/0.1 ML TEST 1 ML VIAL ID ONE (16:15)
[2017-12-10] MEDS ORDERED: PREDNISONE 20 MG TABLET PO ONE (16:25)
[2017-12-10 16:28] LABS: APPEARANCE,URINE CLEAR; BILIRUBIN,URINE NEGATIVE (NEGATIVE); COLOR,URINE YELLOW; GLUCOSE, URINE NEGATIVE (NEGATIVE); KETONES,URINE NEGATIVE (NEGATIVE); LEUKOCYTE ESTERASE,URINE NEGATIVE (NEGATIVE); NITRITE,URINE NEGATIVE (NEGATIVE); PROTEIN,URINE 100 mg/dL (NEGATIVE); URINE SPECIFIC GRAVITY 1.029
[2017-12-10] MEDS ORDERED: FLUCONAZOLE 100 MG TABLET PO ONE (18:02)
[2017-12-10] MEDS ORDERED: SULFAMETHOXAZOLE/TRIMETHOPRIM 800-160 MG TABLET ONE (18:49)
[2017-12-10 22:40] VITALS: BP 122/77
[2017-12-10] MEDS ORDERED: NORMAL SALINE 1000 ML 1,000 ML IV PRN (23:13)
[2017-12-11] MEDS ORDERED: SULFAMETHOXAZOLE/TRIMETHOPRIM 800-160 MG TABLET PO SCH ×2 (02:30→03:00)
[2017-12-11] MEDS ORDERED: FLUCONAZOLE 100 MG TABLET PO SCH (10:00)
== END 2017-12-11 01:55 | disposition short-term general hospital (02) ==
LOC: ER 13:21
DX: J18.9 Pneumonia, unspecified organism (principal); B37.0 Candidal stomatitis; Z21 Asymptomatic human immunodeficiency virus [HIV] infection status; R05 Cough; R63.4 Abnormal weight loss; Z68.1 Body mass index [BMI] 19.9 or less, adult; R91.8 Other nonspecific abnormal finding of lung field; R63.0 Anorexia; R53.83 Other fatigue; F12.10 Cannabis abuse, uncomplicated; J45.909 Unspecified asthma, uncomplicated
CPT/HCPCS: 99285; 96372; 96360; 96361; 36415; 87205; 87206; 87116; 83615; 84443; 85025; 80053; 81001; 86701 ×2; 80307; 86702; 87015; 71046; J3490; 86480; 87070

== ENCOUNTER 2018-09-17 23:43 | Emergency (ER) | payer MEDICAID ==
--- NOTE | 2018-09-18 00:35 | ER Document Report ---
ED Medical Screen (RME) - General Chief Complaint: Chest Pain Stated Complaint: CHEST PAIN Time Seen by Provider: 09/18/18 00:32 Notes: 23-year-old -[place] male who is HIV positive coming in today for right- sided chest pain. States also intermittently has upper abdominal pain. States pain gets worse when he is in bed. Does not have any shortness of breath associated with this. I have treated and performed a rapid initial assessment of this patient. A comprehensive ED assessment and evaluation of the patient, analysis of test results and completion of medical decision making process will be conducted by additional ED providers. PHYSICAL EXAMINATION: GENERAL: Well-appearing, well-nourished and in no acute distress. A&Ox4. Answers questions appropriately. LUNGS: Breath sounds clear to auscultation bilaterally and equal. No wheezes rales or rhonchi. HEART: Regular rate and rhythm without murmurs, rubs, gallops. ABDOMEN: Soft, nondistended abdomen. No guarding, no rebound. Normal bowel sounds present. No CVA tenderness bilaterally. + mild epigastric tenderness (cannot elicit thorough abd exam w/o table, however). Extremities: No cyanosis, clubbing, or edema b/l. NEUROLOGICAL: Normal speech, normal gait. PSYCH: Normal mood, normal affect. TRAVEL OUTSIDE OF THE [place] IN LAST 30 DAYS: No - Related Data Allergies/Adverse Reactions: tramadol Allergy (Verified 12/10/17 13:34) hydrocodone bitartrate [From Vicodin] Adverse Reaction (Verified 12/10/17 13:34) Past Medical History Pulmonary Medical History: Reports: Hx Asthma Renal/ Medical History: Denies: Hx Peritoneal Dialysis Musculoskeltal Medical History: Reports Hx Arthritis, Reports Hx Musculoskeletal Trauma Psychiatric Medical History: Reports: Hx Attention Deficit Hyperactivity Disorder - Immunizations Immunizations up to date: Yes Hx Diphtheria, Pertussis, Tetanus Vaccination: Yes Physical Exam - Vital signs Vitals: Temp Pulse Resp BP Pulse Ox 98.7 F 89 16 132/95 H 98 09/17/18 23:54 09/17/18 23:54 09/17/18 23:54 09/17/18 23:54 09/17/18 23:54 Course - Vital Signs Vital signs: Temp Pulse Resp BP Pulse Ox 98.7 F 89 16 132/95 H 98 09/17/18 23:54 09/17/18 23:54 09/17/18 23:54 09/17/18 23:54 09/17/18 23:54
[2018-09-18 00:59] LABS: HEMATOCRIT 39.9 % (37.9-51.0); HEMOGLOBIN 13.6 g/dL (13.5-17.0); MEAN CORPUSCULAR HEMOGLOBIN 31.3 pg (27.0-33.4); MEAN CORPUSCULAR HGB CONC 34.1 g/dL (32.0-36.0); MEAN CORPUSCULAR VOLUME 92 fl (80-97); PLATELET COUNT 199 10^3/uL (150-450); RED BLOOD COUNT 4.35 10^6/uL (4.35-5.55); RED CELL DISTRIBUTION WIDTH 13.2 % (11.5-14.0); WHITE BLOOD COUNT 5.3 10^3/uL (4.0-10.5)
[2018-09-18 01:17] LABS: ABSOLUTE LYMPHOCYTES# (MANUAL) 3.3 10^3/uL (0.5-4.7); ABSOLUTE MONOCYTES # (MANUAL) 0.4 10^3/uL (0.1-1.4); BAND NEUTROPHILS % (MANUAL) 1 % (3-5); BASOPHILS % (MANUAL) 0 % (0-2); EOSINOPHILS % (MANUAL) 5 % (0-6); LYMPHOCYTES % (MANUAL) 59 % (13-45); MONOCYTES % (MANUAL) 7 % (3-13); SEGMENTED NEUTROPHILS % (MAN) 25 % (42-78); TOTAL CELLS COUNTED 100
[2018-09-18 01:20] LABS: PLATELET COMMENT ADEQUATE
[2018-09-18 01:22] LABS: RBC MORPHOLOGY COMMENT NORMO-CYTIC/CHROMIC
--- NOTE | 2018-09-18 01:51 | RADIOLOGY REPORT (SQ) ---
EXAM DESCRIPTION: XR CHEST 2 VIEWS COMPLETED DATE/TME: 09/18/2018 00:33 CLINICAL HISTORY: 23 years, Male, RIGHT SIDED CP Comparison: None FINDINGS: No focal lung consolidation. No pleural effusion. No pneumothorax. Cardiac and mediastinal silhouette is unremarkable. No acute osseous abnormality. Soft tissues are unremarkable. IMPRESSION: No acute findings. No focal lung consolidation.
[2018-09-18 02:26] LABS: URINE COCAINE SCREEN UNCONFIRMED POSITIVE; URINE METHADONE SCREEN NEGATIVE; URINE PHENCYCLIDINE SCREEN NEGATIVE
[2018-09-18 02:28] LABS: ALANINE AMINOTRANSFERASE 26 U/L (21-72); ALBUMIN 4.1 g/dL (3.5-5.0); ALKALINE PHOSPHATASE 66 U/L (38-126); ANION GAP 9 (5-19); ASPARTATE AMINO TRANSFERASE 25 U/L (17-59); BILIRUBIN,DIRECT 0.2 mg/dL (0.0-0.4); BILIRUBIN,TOTAL 0.5 mg/dL (0.2-1.3); BLOOD UREA NITROGEN 18 mg/dL (7-20); CALCIUM 9.3 mg/dL (8.4-10.2); CARBON DIOXIDE 25 mmol/L (22-30); CHLORIDE 107 mmol/L (98-107); GLUCOSE 101 mg/dL (75-110); POTASSIUM 3.8 mmol/L (3.6-5.0); SODIUM 141.3 mmol/L (137-145); TOTAL PROTEIN 7.3 g/dL (6.3-8.2)
[2018-09-18 02:33] LABS: URINE AMPHETAMINES SCREEN NEGATIVE; URINE BARBITURATES SCREEN NEGATIVE; URINE BENZODIAZEPINES SCREEN NEGATIVE; URINE MARIJUANA (THC) SCREEN UNCONFIRMED POSITIVE
[2018-09-18] MEDS ORDERED: MAG HYDROX/AL HYDROX/SIMETH SUSP 30 ML UDCUP PO ONE (02:34)
[2018-09-18] MEDS ORDERED: LIDOCAINE 2% VISCOUS SOLN 20 ML UDCUP PO ONE (02:34)
[2018-09-18] MEDS ORDERED: FAMOTIDINE 20 MG TABLET PO ONE (02:34)
[2018-09-18] MEDS ORDERED: SUCRALFATE 1 GM TABLET PO ONE (02:34)
[2018-09-18] MEDS ORDERED: METOCLOPRAMIDE HCL ORAL SOLN 10 MG/10 ML UDCUP PO ONE (02:34)
--- NOTE | 2018-09-18 03:32 | ER Document Report ---
ED General - General Chief Complaint: Chest Pain Stated Complaint: CHEST PAIN Time Seen by Provider: 09/18/18 00:32 Notes: Patient is a 23-year-old male history of HIV, polysubstance abuse, presents with complaints of 36 hours of upper abdominal pain intermittently radiating into his chest. Describes this as a burning, throbbing, constant discomfort. Regards the pain is being mild to moderate. States that symptoms started in the past 36 hours and have worsened since onset. Is unable to identify exacerbating or alleviating factors. Believes he had similar symptoms in the past but cannot recall the cause. Denies a history of abdominal surgeries. 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 Denies fever, vomiting but notes he has been nauseated. No melena or hematochezia. Has not seen his primary care physician regarding today's concerns. TRAVEL OUTSIDE OF THE [place] IN LAST 30 DAYS: No - Related Data Allergies/Adverse Reactions: tramadol Allergy (Verified 12/10/17 13:34) hydrocodone bitartrate [From Vicodin] Adverse Reaction (Verified 12/10/17 13:34) Past Medical History - General Information source: Patient - Social History Smoking Status: Current Every Day Smoker Frequency of alcohol use: None Drug Abuse: Cocaine, Marijuana Lives with: Spouse/Significant other Family History: Reviewed & Not Pertinent, DM, Hypertension, Malignancy Patient has suicidal ideation: No Patient has homicidal ideation: No Pulmonary Medical History: Reports: Hx Asthma Renal/ Medical History: Denies: Hx Peritoneal Dialysis Musculoskeletal Medical History: Reports Hx Arthritis, Reports Hx Musculoskeletal Trauma Psychiatric Medical History: Reports: Hx Attention Deficit Hyperactivity Disorder - Immunizations Immunizations up to date: Yes Hx Diphtheria, Pertussis, Tetanus Vaccination: Yes Review of Systems - Review of Systems Notes: Constitutional: Negative for fever. HENT: Negative for sore throat. Eyes: Negative for visual changes. Cardiovascular: Positive for chest discomfort Respiratory: Negative for shortness of breath. Gastrointestinal: Positive for upper abdominal pain, nausea Genitourinary: Negative for dysuria. Musculoskeletal: Negative for back pain. Skin: Negative for rash. Neurological: Negative for headaches, weakness or numbness. 10 point ROS negative except as marked above and in HPI. Physical Exam - Vital signs Vitals: Temp Pulse Resp BP Pulse Ox 98.7 F 89 16 132/95 H 98 09/17/18 23:54 09/17/18 23:54 09/17/18 23:54 09/17/18 23:54 09/17/18 23:54 Interpretation: Normal Notes: PHYSICAL EXAMINATION: GENERAL: Well-appearing, well-nourished and in no acute distress. HEAD: Atraumatic, normocephalic. EYES: Pupils equal round and reactive to light, extraocular movements intact, sclera anicteric, conjunctiva are normal. ENT: nares patent, oropharynx clear without exudates. Moist mucous membranes. NECK: Normal range of motion, supple without lymphadenopathy LUNGS: Breath sounds clear to auscultation bilaterally and equal. No wheezes rales or rhonchi. HEART: Regular rate and rhythm without murmurs ABDOMEN: Soft, nontender, normoactive bowel sounds. No guarding, no rebound. No masses appreciated. EXTREMITIES: Normal range of motion, no pitting or edema. No cyanosis. NEUROLOGICAL: No focal neurological deficits. Moves all extremities spontaneously and on command. PSYCH: Normal mood, normal affect. SKIN: Warm, Dry, normal turgor, no rashes or lesions noted. Course - Re-evaluation Re-evalutation: 09/18/18 03:34 Patient presents with epigastric abdominal pain with associated reflux symptoms most consistent with likely gastritis. Patient has no focal abdominal tenderness on examination. Clinical history is not consistent with biliary pathology. Lipase is normal. No LFT changes. Based on history and exam, I do not suspect ACS, pulmonary embolus, SBO, mesenteric ischemia, acute pancreatitis, biliary pathology, or an abdominal aortic dissection. Troponin, chest x-ray, EKG unremarkable. Patient has had improvement of symptoms here with a GI cocktail. At this time will discharge with return precautions and follow-up recommendations. Verbal discharge instructions given a the bedside and opportunity for questions given. Medication warnings reviewed. Patient is in agreement with this plan and has verbalized understanding of return precautions and the need for primary care follow-up in the next 24-72 hours. - Vital Signs Vital signs: Temp Pulse Resp BP Pulse Ox 98.7 F 89 16 132/95 H 98 09/17/18 23:54 09/17/18 23:54 09/17/18 23:54 09/17/18 23:54 09/17/18 23:54 - Laboratory Result Diagrams: 09/18/18 00:48 09/18/18 00:48 Laboratory results interpreted by me: 09/18/18 00:48 Seg Neuts % (Manual) 25 L Band Neutrophils % 1 L Lymphocytes % (Manual) 59 H Abs Neuts (Manual) 1.4 L - Diagnostic Test Radiology reviewed: Image reviewed, Reports reviewed Radiology results interpreted by me: 09/18/18 03:35 Chest x-ray: No acute infiltrate or pneumothorax - EKG Interpretation by Me Additional EKG results interpreted by me: 09/18/18 03:35 Sinus rhythm, rate 78, no ST elevations or depressions. QTC is 420 Discharge - Discharge Clinical Impression: Upper abdominal pain, Chest discomfort Condition: Good Disposition: HOME, SELF-CARE Additional Instructions: Your symptoms appear to be most consistent with stomach or upper intestinal irritation. Please begin taking famotidine 40 mg in the morning and 40 mg at night. Take Carafate prior to meals. You may also take medicine such as Pepto- Bismol or Tums to assist with your pain. Please return to emergency department immediately if you have worsening of your pain, shortness of breath, vomiting, become unable to exert yourself due to pain or difficulty breathing, you pass out, or have any pain that radiates into your arms, jaw, or back. Please also return if you have any additional symptoms that are concerning to you. As we have discussed, the most important thing is lifestyle changes. You need to avoid smoking, sodas, tea, coffee, alcohol, spicy foods, and acidic foods such as citrus fruits, tomato based products, berries, and most fruit juices. Prescriptions: Famotidine 40 mg PO BID #60 tablet Sucralfate [Carafate 1 gm Tablet] 1 gm PO ACHS #120 tablet
[2018-09-18 03:51] VITALS: BP 108/62
--- NOTE | 2018-09-19 00:22 | EKG REPORT ---
SEVERITY:- ABNORMAL ECG - SINUS RHYTHM INCOMPLETE RIGHT BUNDLE BRANCH BLOCK : Confirmed by: Seb Yu 19-Sep-2018 00:21:52
== END 2018-09-18 03:51 | disposition home or self-care (01) ==
LOC: ER 23:43
DX: R10.13 Epigastric pain (principal); R07.9 Chest pain, unspecified; R11.0 Nausea; F12.10 Cannabis abuse, uncomplicated; F14.10 Cocaine abuse, uncomplicated; F17.200 Nicotine dependence, unspecified, uncomplicated; J45.909 Unspecified asthma, uncomplicated; Z21 Asymptomatic human immunodeficiency virus [HIV] infection status; Z88.5 Allergy status to narcotic agent
CPT/HCPCS: 93005; 99285; 36415; 83690; 85025; 80053; 84484; 80307; 71046; 93010; J3490 ×5

== ENCOUNTER 2018-11-01 13:37 | Emergency (ER) | payer MEDICAID ==
[2018-11-01 13:43] VITALS: BP 111/63
--- NOTE | 2018-11-01 13:50 | ER Document Report ---
HPI - HPI Time Seen by Provider: 11/01/18 13:47 Pain Level: 4 Notes: Patient is a 23-year-old male with a history of HIV who presents complaining of left ear pain x5 days. Patient states that he has had decreased hearing in that ear. He is otherwise able to eat and drink without difficulty. He is urinating normally. No recent illness. No other concerns or complaints. Denies any headache, fever, head injury, neck pain, URI, sore throat, chest pain, palpitations, syncope, cough, shortness of breath, wheeze, dyspnea, abdominal pain, nausea/vomiting/diarrhea, urinary retention, dysuria, hematuria, or rash. - ROS Systems Reviewed and Negative: Yes All other systems reviewed and negative Past Medical History - Social History Smoking Status: Current Every Day Smoker Family History: Reviewed & Not Pertinent, DM, Hypertension, Malignancy Pulmonary Medical History: Reports: Hx Asthma Renal/ Medical History: Denies: Hx Peritoneal Dialysis Musculoskeletal Medical History: Reports Hx Arthritis, Reports Hx Musculoskeletal Trauma Psychiatric Medical History: Reports: Hx Attention Deficit Hyperactivity Disorder - Immunizations Immunizations up to date: Yes Hx Diphtheria, Pertussis, Tetanus Vaccination: Yes Vertical Provider Document - CONSTITUTIONAL Agree With Documented VS: Yes Notes: PHYSICAL EXAMINATION: GENERAL: Well-appearing, well-nourished and in no acute distress. A&Ox4. Answers questions appropriately. Moves comfortably w/o notable distress HEAD: Atraumatic, normocephalic. EYES: Pupils equal round and reactive to light, extraocular movements intact, sclera anicteric, conjunctiva are normal. ENT: Lt EAC tender, scant discharge w/o significant swelling. + cerumen b/l. Rt EAC wnl. + Tenderness to tragus Lt. No mastoid tenderness bilaterally. TM's intact b/l without erythema, fluid, or perforation. Nares patent and without discharge. oropharynx no erythema without exudates. No tonsilar hypertrophy without erythema or exudate. No palatine shift. Uvula midline. No tongue protrusion. No drooling, hoarseness, or airway compromise. Moist mucous membranes. No sinus tenderness. NECK: Normal range of motion, supple without lymphadenopathy. No rigidity/meningismus. LUNGS: Breath sounds clear to auscultation bilaterally and equal. No wheezes rales or rhonchi. No retractions HEART: Regular rate and rhythm without murmurs, rubs, gallops. NEUROLOGICAL: Normal speech, normal gait. PSYCH: Normal mood, normal affect. SKIN: Warm, Dry, normal turgor, no rashes or lesions noted. - INFECTION CONTROL TRAVEL OUTSIDE OF THE [place] IN LAST 30 DAYS: No Course - Re-evaluation Re-evalutation: 11/01/18 13:55 Patient is an afebrile, well-hydrated, 23-year-old male who presents with acute otitis externa of the left ear. Vitals are acceptable without significant tachycardia, tachypnea, or hypoxia. PE is otherwise unremarkable. Patient is nontoxic-appearing and is tolerating p.o. without difficulty. No further work- up warranted. Low suspicion for any sepsis, meningitis, severe dehydration, respiratory compromise, mastoiditis, or other systemic emergent condition at this time. Patient is aware that condition can change from initial presentation and she needs to monitor symptoms closely and seek medical attention with any acute changes. Rx for ciprodex. Recheck with your PCM in 2-3 days. Consider consult with ENT. Return to the ED with any other worsening/concerning symptoms. Patient is in agreement. - Vital Signs Vital signs: Temp Pulse Resp BP Pulse Ox 98.2 F 83 18 111/63 98 11/01/18 13:42 11/01/18 13:42 11/01/18 13:42 11/01/18 13:42 11/01/18 13:42 Discharge - Discharge Clinical Impression: Acute otitis externa of left ear Qualifiers: Otitis externa type: unspecified type Qualified Code(s): H60.502 - Unspecified acute noninfective otitis externa, left ear Condition: Stable Disposition: HOME, SELF-CARE Instructions: Use of Ear Drops ([facility]), Otitis Externa ([facility]) Additional Instructions: Maintain adequate fluid intake Take meds as directed tylenol/ibuprofen as needed Avoid Q-tips in the ears over the counter cold medication as needed for symptoms F/u: with your PCM in 2-3 days for a recheck Consider consult with ENT Return to the ED with any fever, dizziness, tinnitus, headaches, worsening pain, chest pain, palpitations, syncope, neck pain/stiffness, shortness of breath, wheezing, drooling, trouble swallowing/breathing, abdominal pain, n/v/d, rash, or worsening/concerning symptoms otherwise. Prescriptions: Ciprofloxacin HCl/Dexameth [Ciprodex Otic Suspension 7.5 ml Bottle] 4 drop OT BID #1 bottle Forms: Smoking Cessation Education Referrals: DANIE HAGAN DO [ASSOCIATE] - Follow up as needed
== END 2018-11-01 13:55 | disposition home or self-care (01) ==
LOC: ER 13:37
DX: H60.502 Unspecified acute noninfective otitis externa, left ear (principal); H92.02 Otalgia, left ear; H91.92 Unspecified hearing loss, left ear; F17.200 Nicotine dependence, unspecified, uncomplicated; J45.909 Unspecified asthma, uncomplicated
CPT/HCPCS: 99282

== ENCOUNTER 2018-12-02 17:43 | Emergency (ER) | payer MEDICAID ==
[2018-12-02 17:49] VITALS: BP 119/81
[2018-12-02] MEDS ORDERED: IBUPROFEN 800 MG TABLET PO ONE (18:29)
[2018-12-02] MEDS ORDERED: LIDOCAINE 2% VISCOUS SOLN 20 ML UDCUP PO ONE (18:29)
--- NOTE | 2018-12-02 18:29 | ER Document Report ---
HPI - HPI Time Seen by Provider: 12/02/18 18:21 Pain Level: 4 Notes: Patient is a 23-year-old male who presents to the ED complaining of left lower dental pain #[id number] weeks. Patient has been seen by dentist about a week ago and was told that he needs to have an oral surgery to extract teeth. He has not noticed any obvious abscess or purulent discharge. Patient states that he is still able to eat and drink, but does have a decreased p.o. intake due to the pain. He has tried some hcox-ave-fzinghi meds with minimal relief. No other concerns or complaints. Denies any headache, fever, head injury, neck pain, hoarseness, drooling, URI, sore throat, chest pain, palpitations, syncope, cough, shortness of breath, wheeze, dyspnea, abdominal pain, nausea/vomiting/diarrhea, urinary retention, dysuria, hematuria, or rash. - ROS Systems Reviewed and Negative: Yes All other systems reviewed and negative Past Medical History - Social History Smoking Status: Unknown if Ever Smoked Family History: Reviewed & Not Pertinent, DM, Hypertension, Malignancy Pulmonary Medical History: Reports: Hx Asthma Renal/ Medical History: Denies: Hx Peritoneal Dialysis Musculoskeletal Medical History: Reports Hx Arthritis, Reports Hx Musculoskeletal Trauma Psychiatric Medical History: Reports: Hx Attention Deficit Hyperactivity Disorder - Immunizations Immunizations up to date: Yes Hx Diphtheria, Pertussis, Tetanus Vaccination: Yes Vertical Provider Document - CONSTITUTIONAL Agree With Documented VS: Yes Notes: PHYSICAL EXAMINATION: GENERAL: Well-appearing, well-nourished and in no acute distress. HEAD: Atraumatic, normocephalic. EYES: Pupils equal round and reactive to light, extraocular movements intact, sclera anicteric, conjunctiva are normal. ENT: Nares patent and without discharge. oropharynx clear without exudates. No tonsilar hypertrophy or erythema. Moist mucous membranes. No sinus tenderness. Uvula midline. No palatine shift. No tongue protrusion. No respiratory compromise. Mouth: Poor dentition. + mild decay and mild gingivitis. No obvious abscess or discharge noted. No facial swelling. + tenderness to tooth #17/18. NECK: Normal range of motion, supple without lymphadenopathy. No rigidity/meningismus. LUNGS: Breath sounds clear to auscultation bilaterally and equal. No wheezes rales or rhonchi. HEART: Regular rate and rhythm without murmurs, rubs, gallops. NEUROLOGICAL: Cranial nerves grossly intact. Normal speech, normal gait. PSYCH: Normal mood, normal affect. SKIN: Warm, Dry, normal turgor, no rashes or lesions noted. - INFECTION CONTROL TRAVEL OUTSIDE OF THE [place] IN LAST 30 DAYS: No Course - Re-evaluation Re-evalutation: 12/02/18 18:28 Patient is an afebrile, well-hydrated, 23-year-old male who presents to the ED with dental pain, suspect nerve root etiology versus infection. Vitals are acceptable. PE is otherwise unremarkable. No I&D, labs, or imaging warranted at this time based on H&P. Viscous lidocaine dispensed today and motrin given PO. I will send him home with a prescription for penicillin. Low suspicion for any meningitis, sepsis, peritonsillar/pharyngeal abscess, respiratory compromise , Gorge's, temporal arteritis, or other emergent systemic condition at this time. Patient is aware this condition can change from initial presentation and he needs to monitor symptoms closely. Conservative measures otherwise for symptoms. Call to schedule an appointment with a dentist for further evaluation and management. Recheck with your PCM this week as well. Return to the ED with any worsening/concerning symptoms otherwise as reviewed in discharge. Patient is in agreement. - Vital Signs Vital signs: Temp Pulse Resp BP Pulse Ox 98.6 F 98 16 119/81 96 12/02/18 17:47 12/02/18 17:47 12/02/18 17:47 12/02/18 17:47 12/02/18 17:47 Discharge - Discharge Clinical Impression: Pain, dental Condition: Stable Disposition: HOME, SELF-CARE Instructions: Toothache ([facility]), Penicillin V K ([facility]) Additional Instructions: [place] and floss twice daily Maintain fluid intake Take antibiotics as directed Mouthwash, salt water gargles, peroxide rinse as needed Tylenol/ibuprofen as needed Recheck with PCM this week Call today/tomorrow and schedule an appointment with your dentist for further evaluation Return to the ED with any worsening symptoms and/or development of fever, headache, facial swelling, swelling of lips/tongue/throat, trouble swallowing, drooling, hoarseness, neck pain/stiffness, chest pain, palpitations, syncope, shortness of breath, trouble breathing, abdominal pain, n/v/d, numbness/tingling, or other worsening symptoms that are concerning to you. Prescriptions: Ibuprofen [Motrin 800 mg Tablet] 800 mg PO Q8H PRN #15 tab PRN Reason: Penicillin V Potassium [Penicillin Vk 250 mg Tablet] 500 mg PO BID #40 tablet Referrals: ZEUS BUNCH MD [Primary Care Provider] - Follow up as needed CIERRA GARAY MD [ACTIVE STAFF] - Follow up as needed
== END 2018-12-02 18:43 | disposition home or self-care (01) ==
LOC: ER 17:43
DX: K02.9 Dental caries, unspecified (principal); K05.10 Chronic gingivitis, plaque induced; K08.89 Other specified disorders of teeth and supporting structures; J45.909 Unspecified asthma, uncomplicated
CPT/HCPCS: J3490 ×2; 99282

== ENCOUNTER 2019-08-07 18:06 | Emergency (ER) | payer MEDICAID ==
[2019-08-07] MEDS ORDERED: ACETAMINOPHEN 325 MG TABLET PO ONE (19:11)
[2019-08-07] MEDS ORDERED: DOCUSATE SODIUM 100 MG CAPSULE RT_EAR ONE (19:11)
--- NOTE | 2019-08-07 19:11 | ER Document Report ---
ED Medical Screen (RME) - General Chief Complaint: Headache Stated Complaint: QTIP STUCK IN LEFT EAR/HEADACHE Time Seen by Provider: 08/07/19 19:06 Primary Care Provider: MYRA CAMACHO MD [Primary Care Provider] - Follow up as needed Mode of Arrival: Ambulatory Information source: Patient Notes: 23-year-old male presents the pain to the right ear. He states he was putting a Q-tip in his ear because he had such pain in his ear and a headache and when he pulled the Q-tip out there was no cotton on the end of the Q-tip. He does not have a Q-tip in his ear. He does have a cerumen impaction which is just decreasing his hearing. Patient is alert oriented respirations regular and unlabored. He states he would like some Tylenol for his headache as well as his irritability irrigated. Patient is alert oriented respirations regular and unlabored speaking in full sentences. I have greeted and performed a rapid initial assessment of this patient. A comp rehensive ED assessment and evaluation of the patient, analysis of test results and completion of medical decision making process will be conducted by an additional ED providers. TRAVEL OUTSIDE OF THE [place] IN LAST 30 DAYS: No - Related Data Allergies/Adverse Reactions: tramadol Allergy (Verified 12/02/18 17:45) hydrocodone bitartrate [From Vicodin] Adverse Reaction (Verified 12/02/18 17:45) Past Medical History - Social History Frequency of alcohol use: Occasional Drug Abuse: Cocaine, Marijuana Pulmonary Medical History: Reports: Hx Asthma Renal/ Medical History: Denies: Hx Peritoneal Dialysis Musculoskeltal Medical History: Reports Hx Arthritis, Reports Hx Musculoskeletal Trauma Psychiatric Medical History: Reports: Hx Attention Deficit Hyperactivity Disorder - Immunizations Immunizations up to date: Yes Hx Diphtheria, Pertussis, Tetanus Vaccination: Yes Physical Exam - Vital signs Vitals: Temp Pulse Resp BP Pulse Ox 98.8 F 93 16 135/71 H 98 08/07/19 18:15 08/07/19 18:15 08/07/19 18:15 08/07/19 18:15 08/07/19 18:15 Course - Vital Signs Vital signs: Temp Pulse Resp BP Pulse Ox 98.8 F 93 16 135/71 H 98 08/07/19 19:05 08/07/19 18:15 08/07/19 18:15 08/07/19 18:15 08/07/19 18:15 Doctor's Discharge - Discharge Referrals: MYRA CAMACHO MD [Primary Care Provider] - Follow up as needed
[2019-08-07] MEDS ORDERED: CIPROFLOXACIN HCL/DEXAMETH OTIC DROP 7.5 ML AD ONE (20:56)
[2019-08-07] MEDS ORDERED: IBUPROFEN 600 MG TABLET PO ONE (20:58)
--- NOTE | 2019-08-07 20:59 | ER Document Report ---
HPI - HPI Time Seen by Provider: 08/07/19 19:06 Pain Level: 2 Context: Patient is a 23-year-old male that comes to the emergency department for chief complaint of right ear pain and difficulty hearing from the right ear. He also states that he is worried he has the end of a Q-tip in his ear that he put in several nights ago. He states he has had discomfort since that time. He denies drainage, he denies any other symptoms including nausea, vomiting, fever. He states he has had intermittent headaches. - EENT EENT: REPORTS: Ear Pain - REPRODUCTIVE Reproductive: DENIES: : Past Medical History - General Information source: Patient - Social History Smoking Status: Current Every Day Smoker Frequency of alcohol use: Occasional Drug Abuse: Cocaine, Marijuana Family History: Reviewed & Not Pertinent, DM, Hypertension, Malignancy Patient has homicidal ideation: No Pulmonary Medical History: Reports: Hx Asthma Renal/ Medical History: Denies: Hx Peritoneal Dialysis Musculoskeletal Medical History: Reports Hx Arthritis, Reports Hx Musculoskeletal Trauma Psychiatric Medical History: Reports: Hx Attention Deficit Hyperactivity Disorder - Immunizations Immunizations up to date: Yes Hx Diphtheria, Pertussis, Tetanus Vaccination: Yes Vertical Provider Document - CONSTITUTIONAL General Appearance: WD/WN, No Apparent Distress - INFECTION CONTROL TRAVEL OUTSIDE OF THE [place] IN LAST 30 DAYS: No - HEENT HEENT: Atraumatic, Normocephalic. negative: Normal ENT Exam - Unremarkable oral pharyngeal exam, left ear unremarkable. Unremarkable eyes and nasal/sinus exams. Right ear shows cerumen deep in the canal, I did drain out the liquid Colace before examination. I did note that patient has tenderness over the tragus, erythema and tenderness along the ear canal, however patient has no foreign body, swelling, bleeding, discharge, or other concerning findings. Unable to clearly see the tympanic membrane. Unremarkable mastoids. Unremarkable otherwise. - NECK Neck: Normal Inspection. negative: Lymphadenopathy-Left, Lymphadenopathy-Right - RESPIRATORY Respiratory: Breath Sounds Normal, No Respiratory Distress - CARDIOVASCULAR Cardiovascular: Regular Rate, Regular Rhythm - GI/ABDOMEN Gastrointestinal: Abdomen Soft, Abdomen Non-Tender. negative: Abdomen Tender - BACK Back: Normal Inspection - MUSCULOSKELETAL/EXTREMETIES Musculoskeletal/Extremeties: MAEW, FROM, Non-Tender - NEURO Level of Consciousness: Awake, Alert, Appropriate Motor/Sensory: No Motor Deficit, No Sensory Deficit - DERM Integumentary: Warm, Dry, No Rash Course - Re-evaluation Re-evalutation: Patient with otitis externa, some cerumen deep in the canal after Colace was placed in by triage. Patient does have a tenderness along the tragus, erythema and inflammation in the ear canal but no swelling, foreign body, or evidence of infection otherwise. No concerning findings otherwise. No symptoms reported otherwise. Discussed with patient indeed the ear will not be irrigated because of his otitis externa at this time. Discussed cerumen care at home. Provided with Ciprodex drops, discussed care, follow-up, return cautions. Patient states understanding and agreement. - Vital Signs Vital signs: Temp Pulse Resp BP Pulse Ox 98.8 F 93 16 135/71 H 98 08/07/19 19:05 08/07/19 18:15 08/07/19 18:15 08/07/19 18:15 08/07/19 18:15 Discharge - Discharge Clinical Impression: Right ear pain Cerumen impaction Qualifiers: Laterality: right Qualified Code(s): H61.21 - Impacted cerumen, right ear Condition: Stable Disposition: HOME, SELF-CARE Additional Instructions: You have a large amount of wax in the ear canal, in addition to this ear exam is consistent with inflammation/infection of the ear canal. As a result this was not irrigated tonight. Use the eardrops as prescribed, 4 drops, twice a day, for 7 days. Take Tylenol and ibuprofen for pain. After the antibiotics are completed consider irrigating your ear with warm water, follow-up with primary care for additional management of ear pain and ear wax. Return for any concerning symptoms including swelling of the ear, discolored drainage from the ear, fever, vomiting, or any other concerning or worsening symptoms. Forms: Return to Work Referrals: MYRA CAMACHO MD [COMMUNITY BASED STAFF] - Follow up as needed
[2019-08-07 21:44] VITALS: BP 101/56
== END 2019-08-07 21:44 | disposition home or self-care (01) ==
LOC: ER 18:06
DX: H61.21 Impacted cerumen, right ear (principal); H92.01 Otalgia, right ear; F14.10 Cocaine abuse, uncomplicated; F12.10 Cannabis abuse, uncomplicated; J45.909 Unspecified asthma, uncomplicated; F17.200 Nicotine dependence, unspecified, uncomplicated
CPT/HCPCS: 99282; J3490 ×4

== ENCOUNTER 2019-09-17 21:28 | Emergency (ER) | payer MEDICAID ==
[2019-09-18] MEDS ORDERED: NYSTATIN 500000 UNIT/5 ML UDCUP PO ONE ×2 (03:15→06:45)
--- NOTE | 2019-09-18 04:11 | RADIOLOGY REPORT (SQ) ---
CLINICAL INDICATION: cough congestion. TECHNIQUE: A single portable AP view was obtained of the chest at XXXX hours. COMPARISON: None. FINDINGS: The cardiomediastinal silhouette is normal. The lungs are grossly clear. No evidence of effusion or pneumothorax. The visualized bones are unremarkable. IMPRESSION: No evidence of active intrathoracic disease.
[2019-09-18 04:38] LABS: ABSOLUTE MONOCYTES (AUTO) 0.5 10^3/uL (0.1-1.4); EOSINOPHILS % (AUTO) 0.4 % (0-6); HEMOGLOBIN 12.6 g/dL (13.5-17.0); TOTAL CELLS COUNTED % (AUTO) 100 %
[2019-09-18 04:55] LABS: ABSOLUTE LYMPHOCYTES (AUTO) 0.8 10^3/uL (0.5-4.7); ABSOLUTE NEUT (AUTO) 2.4 10^3/uL (1.7-8.2); ALBUMIN 4.3 g/dL (3.5-5.0); ALKALINE PHOSPHATASE 55 U/L (38-126); ANION GAP 7 (5-19); ASPARTATE AMINO TRANSFERASE 24 U/L (17-59); BASOPHILS % (AUTO) 0.2 % (0-2); BILIRUBIN,TOTAL 0.6 mg/dL (0.2-1.3); BLOOD UREA NITROGEN 13 mg/dL (7-20); CALCIUM 9.5 mg/dL (8.4-10.2); CARBON DIOXIDE 29 mmol/L (22-30); CHLORIDE 100 mmol/L (98-107); GLUCOSE 95 mg/dL (75-110); HEMATOCRIT 36.5 % (37.9-51.0); LYMPHOCYTES % (AUTO) 22.2 % (13-45); MEAN CORPUSCULAR HEMOGLOBIN 30.4 pg (27.0-33.4); MEAN CORPUSCULAR HGB CONC 34.4 g/dL (32.0-36.0); MEAN CORPUSCULAR VOLUME 89 fl (80-97); MONOCYTES % (AUTO) 12.5 % (3-13); PLATELET COUNT 193 10^3/uL (150-450); RED BLOOD COUNT 4.13 10^6/uL (4.35-5.55); RED CELL DISTRIBUTION WIDTH 13.7 % (11.5-14.0); SEGMENTED NEUTROPHILS % (AUTO) 64.7 % (42-78); TOTAL PROTEIN 7.9 g/dL (6.3-8.2); WHITE BLOOD COUNT 3.7 10^3/uL (4.0-10.5)
[2019-09-18 04:59] LABS: A TYPE INFLUENZA AG NEGATIVE (NEGATIVE); B INFLUENZA AG NEGATIVE (NEGATIVE)
[2019-09-18] MEDS ORDERED: LIDOCAINE 2% VISCOUS SOLN 15 ML UDCUP PO ONE (06:43)
--- NOTE | 2019-09-18 06:50 | ER Document Report ---
ED Flu Like - General Chief Complaint: Flu Symptoms Stated Complaint: NAUSEA/VOMITING/HEADACHE Time Seen by Provider: 09/18/19 02:53 Primary Care Provider: EMELY BROWN FNP-C [Primary Care Provider] - Follow up as needed Mode of Arrival: Ambulatory Information source: Patient Notes: 24-year-old male presented to ED for complaint of sore throat, cough, congestio n, thrush and dental pain. He has a patient who is positive for HIV. He states he was having some nausea a couple days ago has not had any fevers. He states he is restarted his HIV treatment. Is alert oriented respirations regular nonlabored speaking in full sentences. He states he did have one episode of emesis. TRAVEL OUTSIDE OF THE [place] IN LAST 30 DAYS: No - HPI Onset: Other - Several days Timing/Duration: Intermittent Quality of pain: Other - Sore throat no pain Severity: Moderate Pain Level: 4 Associated symptoms: Nausea, Vomiting - X1, Rhinnorhea, Sinus pain/drainage, Sore throat Similar symptoms previously: Yes Recently seen / treated by doctor: Yes - Related Data Allergies/Adverse Reactions: tramadol Allergy (Verified 12/02/18 17:45) hydrocodone bitartrate [From Vicodin] Adverse Reaction (Verified 12/02/18 17:45) Past Medical History - General Information source: Patient - Social History Smoking Status: Current Some Day Smoker Frequency of alcohol use: None Drug Abuse: None Family History: Reviewed & Not Pertinent, DM, Hypertension, Malignancy Patient has homicidal ideation: No - Past Medical History Cardiac Medical History: Reports: None Pulmonary Medical History: Reports: Hx Asthma EENT Medical History: Reports: None Neurological Medical History: Reports: None Endocrine Medical History: Reports: None Renal/ Medical History: Reports: None Malignancy Medical History: Reports None GI Medical History: Reports: None Musculoskeletal Medical History: Reports Hx Arthritis, Reports Hx Musculoskeletal Trauma Skin Medical History: Reports None Psychiatric Medical History: Reports: Hx Attention Deficit Hyperactivity Disorder Traumatic Medical History: Reports: None Infectious Medical History: Reports: None Surgical Hx: Negative Past Surgical History: Reports: None - Immunizations Immunizations up to date: Yes Hx Diphtheria, Pertussis, Tetanus Vaccination: Yes Review of Systems - Review of Systems Constitutional: Recent illness EENT: Nose discharge, Sinus discharge, Throat pain Respiratory: Cough Gastrointestinal: Vomiting Genitourinary: No symptoms reported Musculoskeletal: No symptoms reported Skin: No symptoms reported Hematologic/Lymphatic: No symptoms reported Neurological/Psychological: No symptoms reported -: Yes All other systems reviewed and negative Physical Exam - Vital signs Vitals: Temp Pulse Resp BP Pulse Ox 99.5 F 102 H 16 106/68 99 09/17/19 22:17 09/17/19 22:17 09/17/19 22:17 09/17/19 22:17 09/17/19 22:17 Interpretation: Normal - General General appearance: Appears well, Alert - HEENT Head: Normocephalic, Atraumatic Eyes: Normal Pupils: PERRL Ears: Normal External canal: Normal Tympanic membrane: Normal Sinus: Normal Nasal: Purulent discharge, Swelling Mouth/Lips: Normal Mucous membranes: Normal Pharynx: Erythema, Post nasal drainage Neck: Normal - Respiratory Respiratory status: No respiratory distress Chest status: Nontender Breath sounds: Normal Chest palpation: Normal - Cardiovascular Rhythm: Regular Heart sounds: Normal auscultation Murmur: No - Abdominal Inspection: Normal Distension: No distension Bowel sounds: Normal Tenderness: Nontender. No: Tender Organomegaly: No organomegaly - Back Back: Normal, Nontender - Extremities General upper extremity: Normal inspection, Nontender, Normal color, Normal ROM, Normal temperature General lower extremity: Normal inspection, Nontender, Normal color, Normal ROM, Normal temperature, Normal weight bearing. No: Nemesio's sign - Neurological Neuro grossly intact: Yes Cognition: Normal Orientation: AAOx4 [place] Coma Scale Eye Opening: Spontaneous [place] Coma Scale Verbal: Oriented [place] Coma Scale Motor: Obeys Commands [place] Coma Scale Total: 15 Speech: Normal Motor strength normal: LUE, RUE, LLE, RLE Sensory: Normal - Psychological Associated symptoms: Normal affect, Normal mood - Skin Skin Temperature: Warm Skin Moisture: Dry Skin Color: Normal Course - Re-evaluation Re-evalutation: 09/18/19 09:11 Patient presents with upper respiratory symptoms worrisome for possible Covid 19. Patient does not have emergency worring symptoms such as difficulty breathing, shortness of breath, chest pain, pressure, confusion or cyanosis. Patient appears suitable for discharge as they are not of an advanced age, do not have any chronic medical conditions such as diabetes, CAD, immune deficiency, chronic lung disease or chronic kidney disease. Patient's vital signs are stable and patient is nontoxic in appearance. Good return precautions have been discussed with patient, patient verbalized understanding and is agreeable with discharge plan of care at this time. Labs x-ray discussed with patient and written report of labs and x-ray given to patient. Patient was treated with viscous lidocaine for his dental pain that is chronic he was also treated with nystatin swish and swallow for his thrush. He states he is followed up with his HIV physician for further treatment for the HIV. He was discharged home with prescription for nystatin. Patient verbalized understanding and agreement with treatment plan and patient was discharged home. - Vital Signs Vital signs: Temp Pulse Resp BP Pulse Ox 98.5 F 99 16 104/79 97 09/18/19 06:45 09/18/19 06:45 09/18/19 06:45 09/18/19 06:45 09/18/19 06:45 - Laboratory Result Diagrams: 09/18/19 03:50 09/18/19 03:50 Laboratory results interpreted by me: 09/18/19 09/18/19 03:50 03:50 WBC 3.7 L RBC 4.13 L Hgb 12.6 L Hct 36.5 L Sodium 136.4 L Discharge - Discharge Clinical Impression: Sore throat (viral), Thrush, oral, Pain due to dental caries, Person under investigation for COVID-19 URI (upper respiratory infection) Qualifiers: URI type: unspecified viral URI Qualified Code(s): J06.9 - Acute upper respiratory infection, unspecified Condition: Stable Disposition: HOME, SELF-CARE Additional Instructions: UPPER RESPIRATORY ILLNESS: You have a viral infection of the respiratory passages -- a "cold." This common infection causes nasal congestion, drainage, and often sore throat and cough. It is highly contagious. The disease usually lasts about 10 to 14 days. There is no "cure" for the viral infection -- it must run its course. If there is a complication, such as bacterial infection in the nose, sinuses, middle ear, or bronchial tubes, antibiotics may be required. The antibiotics won't affect the virus. Drink plenty of fluids. A humidifier may help. An expectorant medication or decongestant may make you more comfortable. Use acetaminophen or ibuprofen for fever or aches. See the doctor if fever persists over two days, if there is any significant worsening of your symptoms, or if you simply fail to improve as expected. SORE THROAT: Sore throats may be caused by viruses, bacteria, or fungi. Most are due to a virus, and must get better on their own. Bacterial sore throats, particularly those due to "strep," need treatment with antibiotics. If an antibiotic is prescribed, be sure to take the medication for a full 10 days. Failure to take the antibiotic can result in complications such as rheumatic fever. Sometimes, an injection of antibiotics is given instead of pills or liquid. This single "shot" is equal in effectiveness to the oral medication. To relieve symptoms, take acetaminophen for pain. Sip clear liquids frequently, or eat popsicles or ice chips. Anesthetic sprays or lozenges may help. Make sure the air in the room is not too dry. Avoid using decongestants or antihistamines. Call the doctor if there is no improvement in two days, or if you have difficulty breathing, increasing throat pain, high fever, rash, or frequent vomiting. Oral Thrush You have thrush. This is a yeast infection of the mucous membranes in the mouth, caused by an organism called tammie. Typical symptoms are redness, tend erness, and white spots "stuck" on the membranes. Thrush often occurs after treatment with antibiotics, particularly in infants. In adults, the infection is unusual. It usually requires further evaluation for a possible hidden disease such as diabetes or a problem with the immune system. Thrush is treated with antifungal medication. The medicine is rubbed into the cheeks. Several days are required for healing. You should return if you do not improve as expected, or if any new or unusual symptoms develop. TOOTHACHE: Your pain is due to dental decay. The tooth must be repaired in order for you to feel better. You will, therefore, be referred to a dentist. We do not have dentists on the staff at [facility]. Severe swelling or drainage around a tooth usually means a dental abscess. This also requires evaluation and treatment by the dentist, but antibiotics may be prescribed while awaiting dental treatment. You should be rechecked immediately if you develop major swelling of the face, increasing pain, a lump in the jaw or gums, headache, difficulty swallowing, or fever. USE OF ACETAMINOPHEN (Tylenol): Acetaminophen may be taken for pain relief or fever control. It's much safer than aspirin, offering a wider range of "safe" dosages. It is safe during . Some brand names are Tylenol, Panadol, Datril, Anacin 3, Tempra, and Liquiprin. Acetaminophen can be repeated every four hours. The following are maximum recommended dosages: >89 pounds or adults 650 mg to 900 mg Acetaminophen can be repeated every four hours. Maximum dose not to exceed 4000 mg a day. SMOKING: If you smoke, you should stop smoking. The tar and chemicals in cigarette smoke are harmful. Smoking has been shown to cause: emphysema chronic bronchitis lung cancer mouth and throat cancer stomach and pancreas cancer premature aging defects In addition, smoking increases ear and lung infections in children of smokers. Patient was provided with discharge information including: As a person under investigation for Covid 19, the [facility] and Human Services, division of public health advises you to adhere to the following guidance until your test results are reported to you. If your test result is positive, you will receive additional information from your provider and your local health department at that time. Remain at home until you are cleared by the health provider or public health authorities. Keep a log of visitors to your home, notify any visitors to your home of your isolation status. If you plan to move to a new address or leave the [facility], notify the local health department in your County. Call your doctor or seek care if you have an urgent medical need. Before seeking medical care, call ahead to get instructions from the provider before arriving at the medical office clinic or hospital. Notify them that you are being tested for the virus that causes Covid 19 so that arrangements can be made, as necessary, to prevent transmission to others in the healthcare setting. Next, notify the local health department in your [facility]. If a medical emergency arises and you need to call 911, inform the first responders that you are being tested for the virus that causes Covid 19. Next, notify the local health department in your county. FOLLOW-UP CARE: If you have been referred to a physician for follow-up care, call the physicians office for an appointment as you were instructed or within the next two days. If you experience worsening or a significant change in your symptoms, notify the physician immediately or return to the Emergency Department at any time for re-evaluation. Following is a list of dentist to follow-up for your dental pain [facility] [address] [place] [address] [facility] [address] [facility] [address] [facility] [address] [facility] [email or web address] [address] [place] [address] Tuesday- 8:00am to 5:00 pm Will see patients from other [facility]. Charges based on income and family size and accepts Medicare, Medicaid, and Insurances Will pull molars [facility] [address] Hours of Operation 8:00 am - 4:30 pm weekdays The following dental offices accept Medicaid: [facility] [address]le Dr. Pedro Gopi Klein, Grace, and Izabel oral surgery Dr. Cerda ([place]) Dr. Townsend ([place]) [facility] Drs. Carlson and Naren ([place]) Dr. More ([place]) [facility] Dr. Stewart ([place]) Drs. Bashir and ([place]) Medicaid Care Line Prescriptions: Nystatin [Mycostatin 250421 Unit/1 ml Susp 60 ml Btl] 5 ml PO Q6HWA #60 ml Referrals: EMELY BROWN, SALES DATA ANALYST-C [Primary Care Provider] - Follow up as needed
[2019-09-18 06:58] VITALS: BP 104/79
== END 2019-09-18 07:17 | disposition home or self-care (01) ==
LOC: ER 21:28
DX: J02.8 Acute pharyngitis due to other specified organisms (principal); B97.89 Other viral agents as the cause of diseases classified elsewhere; B37.0 Candidal stomatitis; R05 Cough; R11.2 Nausea with vomiting, unspecified; R09.82 Postnasal drip; J34.89 Other specified disorders of nose and nasal sinuses; K08.89 Other specified disorders of teeth and supporting structures; G89.29 Other chronic pain; F17.200 Nicotine dependence, unspecified, uncomplicated; Z21 Asymptomatic human immunodeficiency virus [HIV] infection status; Z20.828 Contact with and (suspected) exposure to other viral communicable diseases; Z88.6 Allergy status to analgesic agent
CPT/HCPCS: 99283; 36415; 87070; 87880; 85025; 87635; 80053; 87804; 71045; J3490 ×2; C9803